=== PATIENT | male | born 1945 | race Asian ===

== ENCOUNTER 2018-02-24 09:00 | Outpatient (RCR) | payer MEDICARE | END 2018-03-21 | disposition home or self-care (01) | LOC: PTY 09:00 | DX: M75.101 Unspecified rotator cuff tear or rupture of right shoulder, not specified as traumatic (principal) | CPT/HCPCS: 97032; 97110; 97140; 97161; G0283; G8984; G8985 ==

== ENCOUNTER 2018-03-23 09:42 | Outpatient (RCR) | payer MEDICARE | END 2018-04-21 | disposition home or self-care (01) | LOC: PTY 09:42 | DX: M75.101 Unspecified rotator cuff tear or rupture of right shoulder, not specified as traumatic (principal); I12.9 Hypertensive chronic kidney disease with stage 1 through stage 4 chronic kidney disease, or unspecified chronic kidney disease; N18.9 Chronic kidney disease, unspecified; R73.03 Prediabetes ==